=== PATIENT | male | born 1995 | race Caucasian/White ===

== ENCOUNTER 2024-06-19 22:56 | Observation (INO) | payer BC ==
[2024-06-20 00:03] VITALS: BMI 24.6
[2024-06-20] MEDS ORDERED: Morphine 4 MG/ML VIAL SLOW IVP PRN (00:22)
[2024-06-20] MEDS ORDERED: HYDROcodone/Acetaminophen 7.5/325 mg Tablet PO PRN (00:23)
[2024-06-20] MEDS ORDERED: Meperidine HCl/PF 25 MG (1 mL) VIAL IM PRN (00:23)
[2024-06-20] MEDS: Dextrose 5 % And 0.9 % NaCl 1,000 ML IV SCH (01:00)
[2024-06-20] MEDS: CEFAZOLIN 2 GM in Sodium Chloride 0.9% 100 ML IVPB SCH (01:39)
[2024-06-20] MEDS ORDERED: PROPOFOL 20 ML ONE (01:39)
[2024-06-20] MEDS ORDERED: fentaNYL PF 100 MCG/2 ML SYRINGE ONE ×2 (02:22→02:24)
[2024-06-20] MEDS ORDERED: Bupivacaine PF 0.5% 30 ML VIAL ONE (02:41)
[2024-06-20] MEDS ORDERED: Bacitracin Zinc Ointment 30 gm TUBE ONE (02:41)
[2024-06-20] MEDS ORDERED: Ondansetron PF 4 MG/2 ML Vial ONE (02:49)
[2024-06-20] MEDS ORDERED: Dexamethasone 20 MG/5 ML VIAL ONE (02:49)
[2024-06-20] MEDS ORDERED: HYDROmorphone 2 MG/ML VIAL SLOW IVP PRN (03:32)
[2024-06-20] MEDS ORDERED: Ondansetron HCl/PF 4 MG/2 ML Vial IVP PRN (03:32)
[2024-06-20] MEDS ORDERED: Promethazine HCl 25 MG/ML VIAL IM PRN (03:32)
[2024-06-20] MEDS: Ketorolac Tromethamine 30 MG (1 mL) VIAL IVP SCH (04:39)
[2024-06-20 16:53] VITALS: BP 104/57; TEMP 97.7
== END 2024-06-20 16:05 | disposition home or self-care (01) ==
LOC: SURG B 06-20 00:01
PROVIDERS: ADMIT Orthopaedic Surgery Hand Surgery; ATTEND Orthopaedic Surgery Hand Surgery
PROC: 0PBQ0ZZ Excision of Left Metacarpal, Open Approach (ICD-10-PCS; principal; 2024-06-20)
PROC: 0LM80ZZ Reattachment of Left Hand Tendon, Open Approach (ICD-10-PCS; 2024-06-20)
DX: S56.422A Laceration of extensor muscle, fascia and tendon of left index finger at forearm level, initial encounter (principal); S66.822A Laceration of other specified muscles, fascia and tendons at wrist and hand level, left hand, initial encounter; M94.242 Chondromalacia, joints of left hand; X58.XXXA Exposure to other specified factors, initial encounter
CPT/HCPCS: J0665; J1100; J1885; J2405; J2704; J7042